=== PATIENT | male | born 1970 | race Caucasian/White ===

== ENCOUNTER 2022-07-10 00:55 | Day surgery (SDC) | payer OTHER, SELFPAY ==
[2022-06-25 14:03] VITALS: BMI 26.6
--- NOTE | 2022-07-09 14:27 | PM.HPGS ---
History of Present Illness History of Present Illness Consent: Risks, benefits, and alternatives have been discussed and questions answered. Patient agrees to proceed with procedure. Chief complaint: neoplasm screening Narrative: Clyde Preston is a 52 year old male referred for colon cancer screening. this is his 1st colonoscopy. He has no symptoms. His son has inflammatory bowel disease for which she has had a resection. No one else in the family has any colon disorders. Review of Systems Review of Systems: All systems reviewed & are unremarkable except as noted in HPI and below PMFSH Past Medical History Medical History Coronary artery disease Mixed hyperlipidemia Myocardial infarction Smoker Surgical History Surgical History Stented coronary artery Family History Family History Grandparent Hypertension Hyperlipidemia Diabetes mellitus Cerebrovascular accident Heart disease Father Hyperlipidemia Hypertension Heart disease Diabetes mellitus Mother Hypertension Breast cancer Social History Social History Smoking packs per day: 1 Smoking cigarettes per day: 20.0 Years smoked: 20 Smoking pack-years: 20.00 Smoking status: Former smoker Tobacco type: cigarettes Second hand tobacco smoke exposure: Yes Additional smoking assessment comments: consumes half a pack of cigarettes daily Alcohol intake: current Alcohol use details: socially Substance use: never Substance use type: does not use Living arrangements: with family Gender identity (if verbalized by the patient): Male Meds Home Medications and Allergies Home Medications Medication Instructions Recorded Confirmed Type aspirin 81 mg tablet,delayed 81 mg PO DAILY 10/31/20 06/25/22 History release (Adult Low Dose Aspirin) nitroglycerin 0.4 mg sublingual 0.4 mg sublingual Q5M PRN chest 10/31/20 06/25/22 Rx tablet pain #25 tabs atorvastatin 80 mg tablet 80 mg PO DAILY #90 tabs 11/20/21 06/25/22 Rx dicyclomine 10 mg capsule 10 mg PO TID 90 days #270 caps 06/18/22 06/25/22 Rx ezetimibe 10 mg tablet 10 mg PO DAILY 06/25/22 06/25/22 History Allergies Allergy/AdvReac Type Severity Reaction Status Date / Time No Known Allergies Allergy Verified 06/25/22 13:58 Exam Const: General: alert Orientation/consciousness: patient oriented x3 Resp: Auscultation: clear to auscultation bilaterally Cardio: Rhythm: regular rhythm GI: GI Palp: Yes Soft to palpation and No Tenderness to palpation present (GI) Neuro: General: patient oriented x3 Assessment and Plan Assessment and plan (1) Colon cancer screening: Code(s): Z12.11 - Encounter for screening for malignant neoplasm of colon Status: Acute Assessment and Plan: Colonoscopy with possible biopsy or polypectomy or cautery or injection of substances.
[2022-07-10 06:21] VITALS: BMI 27.0
[2022-07-10 06:23] VITALS: BP 111/83; PULSE 81; RESP 18; TEMP 36.2; O2SAT 100
[2022-07-10] MEDS: LACTATED RINGERS 1,000 ML 150 ML IV CONT (06:28)
--- NOTE | 2022-07-10 07:16 | WPDANESEPPF ---
Anes - Initial Pre Proc Eval Procedure: Operation Date: 07/10/22 07:30 Proposed Procedures p Screening Colonoscopy - Mc Patricia MD Date/Time: 07/10/22 07:16 Surgeon: Mc Patricia MD Pre Op Diagnosis: neoplasm screening Patient Data Age: 52 Gender: M Height: 1.75 m Weight: 83 kg Last Vital Signs Temp 97.1 F L 07/10/22 06:23 Pulse 81 07/10/22 06:23 Resp 18 07/10/22 06:23 BP 111/83 07/10/22 06:23 Pulse Ox 100 07/10/22 06:23 Allergies Allergy/AdvReac Type Severity Reaction Status Date / Time No Known Allergies Allergy Verified 06/25/22 13:58 Home Medications Medication Instructions Recorded Confirmed Type aspirin 81 mg tablet,delayed 81 mg PO DAILY 10/31/20 06/25/22 History release (Adult Low Dose Aspirin) nitroglycerin 0.4 mg sublingual 0.4 mg sublingual Q5M PRN chest 10/31/20 06/25/22 Rx tablet pain #25 tabs atorvastatin 80 mg tablet 80 mg PO DAILY #90 tabs 11/20/21 06/25/22 Rx dicyclomine 10 mg capsule 10 mg PO TID 90 days #270 caps 06/18/22 06/25/22 Rx ezetimibe 10 mg tablet 10 mg PO DAILY 06/25/22 06/25/22 History Patient hx anesthesia problems: none Family hx anesthesia problems: none Results Review: All pre-operative results and documents have been reviewed as part of the pre-operative evaluation. [facility] Past Medical History Medical History Coronary artery disease Mixed hyperlipidemia Myocardial infarction Smoker Surgical History Surgical History Stented coronary artery Family History Family History Grandparent Hypertension Hyperlipidemia Diabetes mellitus Cerebrovascular accident Heart disease Father Hyperlipidemia Hypertension Heart disease Diabetes mellitus Mother Hypertension Breast cancer Social History Social History Smoking packs per day: 1 Smoking cigarettes per day: 20.0 Years smoked: 20 Smoking pack-years: 20.00 Smoking status: Former smoker Tobacco type: cigarettes Second hand tobacco smoke exposure: Yes Additional smoking assessment comments: consumes half a pack of cigarettes daily Alcohol intake: current Alcohol use details: socially Substance use: never Substance use type: does not use Living arrangements: with family Gender identity (if verbalized by the patient): Male Anes - Eval Final PreProcedure Day of Procedure 07/10/22 07:16 Patient weight: overweight Heart: regular rate and rhythm Lungs: clear to auscultation Airway: Mallampati scale class II Neurological: alert and oriented Last oral intake: >/= 8 hours ASA classification: III Emergent: no Anesthetic plan: proceed Anesthesia type and monitoring: general GIVS and standard monitoring Results Review: All pre-operative results and documents have been reviewed as part of the pre-operative evaluation. Informed Consent: The patient's anesthetic plan and its attendant risks and benefits were discussed with the patient/family/POA. Questions were solicited and answers provided to the satisfaction of the patient/family/POA.
[2022-07-10 07:44] VITALS: BP 109/77; PULSE 84; RESP 17; O2SAT 96
[2022-07-10 07:54] VITALS: BP 114/83; PULSE 88; RESP 20; O2SAT 100
[2022-07-10 08:04] VITALS: BP 119/90; PULSE 82; RESP 15; O2SAT 98
== END 2022-07-10 08:18 | disposition home or self-care (01) ==
PROVIDERS: PCP Family Medicine; Visit Provider Internal Medicine Gastroenterology
PROC: 0DJD8ZZ Inspection of Lower Intestinal Tract, Via Natural or Artificial Opening Endoscopic (ICD-10-PCS; CPT 45378; principal; 2022-07-10 07:30)
DX: Z12.11 Encounter for screening for malignant neoplasm of colon (principal); K62.1 Rectal polyp; K63.3 Ulcer of intestine; K57.30 Diverticulosis of large intestine without perforation or abscess without bleeding; Z79.82 Long term (current) use of aspirin; I25.10 Atherosclerotic heart disease of native coronary artery without angina pectoris; I25.2 Old myocardial infarction; E78.2 Mixed hyperlipidemia; Z95.5 Presence of coronary angioplasty implant and graft; Z87.891 Personal history of nicotine dependence
CPT/HCPCS: 45380; 88305; J2704; J7120

== ENCOUNTER 2023-11-12 13:00 | Outpatient (RCR) | payer OTHER, SELFPAY ==
[2023-09-17 14:49] VITALS: BMI 29.4
[2023-09-17 14:50] VITALS: BMI 29.4
[2023-11-03 11:35] VITALS: BMI 29.4; BMI 29.7
== END 2023-12-07 12:32 | disposition home or self-care (01) ==
LOC: ANHDMC 13:00
PROVIDERS: PCP Family Medicine; Visit Provider Family Medicine
DX: E11.9 Type 2 diabetes mellitus without complications (principal); Z71.3 Dietary counseling and surveillance; Z71.89 Other specified counseling
CPT/HCPCS: 97802; 97803; G0108

== ENCOUNTER 2025-06-30 12:44 | Outpatient (CLI) | payer OTHER, SELFPAY ==
--- NOTE | ~2025-06-30 | US_ITS ---
Limited Abdominal Sonogram: Real-time sonographic imaging of the right upper quadrant was performed. Clinical History: Abnormal serum enzyme levels Findings: The liver appears echogenic, with no evidence of mass lesion or bile duct dilatation. Main portal vein demonstrates normal direction of flow. The gallbladder is well distended, and appears no rmal with no evidence of gallstone or wall thickening. The common bile duct measures 4 mm. The visua lized pancreas, aorta, and IVC are unremarkable. Impression: Diffuse fatty infiltration of the liver. Reviewed, dictated and finalized at location M. Impression: Diffuse fatty infiltration of the liver.
== END 2025-06-30 12:45 | disposition home or self-care (01) ==
PROVIDERS: PCP Family Medicine; Visit Provider Student in an Organized Health Care Education/Training Program
DX: K76.0 Fatty (change of) liver, not elsewhere classified (principal); R74.8 Abnormal levels of other serum enzymes
CPT/HCPCS: 76705